=== PATIENT | female | born 1995 | race Asian ===

== ENCOUNTER 2017-08-07 13:59 | Emergency (ER) | payer SELFPAY ==
[2017-08-07 14:17] VITALS: BP 143/92
--- NOTE | 2017-08-07 15:01 | RAD ---
INDICATION: Posterior neck pain COMPARISON: None. TECHNIQUE: 5 views of the cervical spine were obtained. FINDINGS: C1-C7 are visualized. There is a mild degree of straightening of the normal cervical lordosis. Otherwise the vertebra are in normal alignment. No prevertebral soft tissue swelling or fracture is seen. Disc spaces appear maintained. IMPRESSION: Straightening of the normal cervical lordosis in this otherwise radiographically normal cervical spine. If the patient's symptoms persist, follow-up imaging is recommended.
--- NOTE | 2017-08-07 17:50 | UC ---
Filipe Chase Nikita, scribed for Zachary Lafleur MD on 08/07/17 at 1437 . Head Injury HPI - HPI Summary HPI Summary: This patient is a 21 year old F presenting to [facility] with a chief complaint of head injury since yesterday at 1530. The patient was working with a horse that pulled back and caused her to fall backwards and hit her head on the floor. The patient rates the pain 4/10 in severity. Symptoms aggravated by nothing. Symptoms alleviated by nothing. Patient reports slight neck pain. Patient denies LOC, ERVIN, and N/V. LMP is currently ending. - History Of Current Complaint Chief Complaint: UCHeadInjury Stated Complaint: HEAD AND NECK Time Seen by Provider: 08/07/17 14:27 Hx Obtained From: Patient Hx Last Menstrual Period: now Onset/Duration: Sudden Onset, Lasting Days, Still Present Severity Currently: Moderate Severity Initially: Moderate Pain Intensity: 4 Pain Scale Used: 0-10 Numeric Aggravating Factor(s): Nothing Alleviating Factor(s): Nothing Associated Signs And Symptoms: Positive: Neck Pain - slight. Negative: LOC ( Time In Secs./Mins/Hrs), LOC Duration Unknown, Nausea, Vomiting - Allergies/Home Medications Allergies/Adverse Reactions: Allergies Allergy/AdvReac Type Severity Reaction Status Date / Time No Known Allergies Allergy Verified 08/07/17 14:17 PMH/Surg Hx/FS Hx/Imm Hx Endocrine History: Other Other Endocrine History: No DM Cardiovascular History: Other Other Cardiovascular History: No HTN, CAD Respiratory History: Asthma, Other Other Respiratory History: Allergies - Surgical History Surgical History: Yes Surgery Procedure, Year, and Place: L Thumb - Family History Known Family History: Negative: Cardiac Disease, Hypertension, Diabetes - Social History Alcohol Use: None Substance Use Type: None Smoking Status (MU): Never Smoked Tobacco Review of Systems Gastrointestinal: Other - Denies N/V Musculoskeletal: Other: - slight neck pain Neurological: Other - denies ERVIN and LOC All Other Systems Reviewed And Are Negative: Yes Physical Exam - Summary Physical Exam Summary: VITAL SIGNS: Reviewed. GENERAL: ~Patient is a well-developed and nourished FEMALE who is lying comfortable in the stretcher. ~Patient is not in any acute respiratory distress. HEAD AND FACE: Normocephalic EYES: PERRLA, EOMI x 2. EARS: Hearing grossly intact. MOUTH: Oropharynx within normal limits. NECK: Supple, trachea is midline, no adenopathy, no JVD, no carotid bruit. No CVA tenderness, mild paraspinal muscle tenderness bilaterally in the C-spine. CHEST: Symmetric, no tenderness at palpation LUNGS: Clear to auscultation bilaterally. No wheezing or crackles. CVS: Regular rate and rhythm, S1 and S2 present, no murmurs or gallops appreciated. ABDOMEN: Soft, non-tender. Bowel sounds are normal. No abdominal abnormal pulsations. EXTREMITIES: Full ROM in all major joints, no edema, no cyanosis or clubbing. NEURO: Alert and oriented x 3. No acute neurological deficits. Speech is normal and follows commands. SKIN: Dry and warm Triage Information Reviewed: Yes Vital Signs: Initial Vital Signs Temp 98.1 F 08/07/17 14:14 Pulse 98 08/07/17 14:14 Resp 12 08/07/17 14:14 BP 143/92 08/07/17 14:14 Pulse Ox 99 08/07/17 14:14 Vital Signs Reviewed: Yes Diagnostics - Radiology C-spine XR Radiology Interpretation Completed By: Radiologist - Straightening of the normal cervical lordosis in this otherwise radiographically normal cervical spine. If the patient's symptoms persist, follow-up imaging is recommended. [facility] physician has reviewed this radiology report. Re-Evaluation - Re-Evaluation First Eval Re-Evaluation Time: 15:04 Comment: Discussed XR findings with the patient. Head Injury Course/Dx - Course Course Of Treatment: is patient is a 21 year old F presenting to [facility] with a chief complaint of head injury and neck pain since yesterday at 1530. C-spine XR reveals straightening of the normal cervical lordosis in this otherwise radiographically normal cervical spine. It seems a muscular pain. She will be given Prescriotion for pain. She has no headache. The pt is hemodynamically stable, alert and oriented x3. The patient was found to have increased BP in UC. The patient will follow up with PCP for better control of BP. I discussed all the findings and test results with the patient. Patient was instructed to return to the urgent care or go to ER immediately if any of the symptoms return or worsens. Plan of care was discussed with the patient, and patient understands and agrees. All questions were answered to patient satisfaction. There were no further complaints or concerns. - Differential Dx/Diagnosis Differential Diagnosis/HQI/PQRI: Cervical Sprain, Contusion, Other - neck pain Provider Diagnoses: neck pain Discharge - Sign-Out/Discharge Documenting (check all that apply): Discharge - Discharge Plan Condition: Stable Disposition: HOME Prescriptions: Ibuprofen TAB* [Motrin TAB* 600 MG] 600 mg PO Q8H PRN #20 tab PRN Reason: Pain Methocarbamol TAB* [Robaxin 500 MG TAB*] 500 mg PO TID PRN #9 tab PRN Reason: Pain Patient Education Materials: Acute Neck Pain (ED) [facility] - Additional Instructions: Take medications as instructed Increase your fluid intake FOLLOW UP WITH YOUR PRIMARY CARE PROVIDER WITHIN ONE WEEK FOR HIGH BLOOD PRESSURE NOTED TODAY. RETURN TO URGENT CARE FOR ANY WORSENING OR NEW SYMPTOMS. - Billing Disposition and Condition Condition: STABLE Disposition: HOME The documentation as recorded by the Filipe hebert Nikita accurately reflects the service I personally performed and the decisions made by Miquel john Walter, MD.
== END 2017-08-07 15:05 | disposition home or self-care (01) ==
LOC: UCEAST 13:59
DX: M54.2 Cervicalgia (principal); S09.90XA Unspecified injury of head, initial encounter; W18.39XA Other fall on same level, initial encounter; Y93.89 Activity, other specified; Y92.71 Barn as the place of occurrence of the external cause; J45.909 Unspecified asthma, uncomplicated
CPT/HCPCS: 72050; 99202; G0463